=== PATIENT | male | born 1955 | race African-American/Black ===

== ENCOUNTER → 2023-08-03 10:42 | Outpatient (REF) | payer OTHER, SELFPAY | LOC: RAD 10:42 | PROVIDERS: ATTENDING PHYSICIAN Surgery Vascular Surgery; FAMILY PHYSICIAN Family Medicine | DX: I77.9 Disorder of arteries and arterioles, unspecified (principal) | CPT/HCPCS: 93922 ==

== ENCOUNTER → 2023-10-27 15:01 | Outpatient (REF) | payer OTHER, SELFPAY | LOC: RAD 15:01 | PROVIDERS: ATTENDING PHYSICIAN Surgery Vascular Surgery; FAMILY PHYSICIAN Family Medicine | DX: I72.4 Aneurysm of artery of lower extremity (principal) | CPT/HCPCS: 93922; 93925 ==

== ENCOUNTER → 2024-05-07 12:54 | Outpatient (REF) | payer BC, SELFPAY | LOC: DHVS 12:54 | PROVIDERS: ATTENDING PHYSICIAN Registered Nurse; FAMILY PHYSICIAN Family Medicine | DX: I72.4 Aneurysm of artery of lower extremity (principal) | CPT/HCPCS: 93922; 93925 ==

== ENCOUNTER → 2024-11-30 10:06 | Outpatient (REF) | payer OTHER, SELFPAY | LOC: DHVS 10:06 | PROVIDERS: ATTENDING PHYSICIAN Surgery Vascular Surgery; FAMILY PHYSICIAN Family Medicine | DX: I72.4 Aneurysm of artery of lower extremity (principal) | CPT/HCPCS: 93922; 93925 ==